=== PATIENT | female | born 1995 | race Caucasian/White ===

== ENCOUNTER 2017-01-07 11:18 | Emergency (ER) | payer BC ==
--- NOTE | 2017-01-07 12:02 | RAD ---
INDICATION: Left hand injury. TECHNIQUE: 4 views of the left hand were obtained. FINDINGS: There is a transverse nondisplaced fracture of the proximal metaphysis of the first metacarpal. There is also a transverse nondisplaced fracture of the proximal metaphysis of the first proximal phalanx. Joint spaces appear maintained. IMPRESSION: 1. TRANSVERSE NONDISPLACED FRACTURE OF THE FIRST METACARPAL. 2. TRANSVERSE NONDISPLACED FRACTURE OF THE FIRST PROXIMAL PHALANX.
[2017-01-07] MEDS ORDERED: Ibuprofen TAB* 600 MG PO ONE (13:26)
--- NOTE | 2017-01-07 13:30 | ED ---
Upper Extremity Pain - HPI Summary HPI Summary: 21 female presents to ED with complaints of left hand pain and injury that occurred early this morning around 1am. Patient states she was squatting down when she lost her balance, fell and used her left hand to try and catch herself. States she twisted and landed on her thumb wrong. Admits to swelling, bruising and pain with movement. Is right hand dominant. Denies wrist pain, arm pain or any other complaints at this time. No PMHx. Took ibuprofen early this morning around 3am and has not had anything since. Denies numbness/tingling. - History of Current Complaint Chief Complaint: EDExtremityUpper Stated Complaint: HAND INJURY Time Seen by Provider: 01/07/17 11:37 Hx Obtained From: Patient Onset/Duration: Started Hours Ago, Traumatic, Still Present, Worse Since Timing: Constant, Lasting Hours Severity Initially: Moderate Severity Currently: Moderate Pain Location: Hand - left, thumb Character: Sharp, Aching Aggravating Factor(s): Movement Alleviating Factor(s): Rest Associated Signs & Symptoms: Positive: Swelling, Bruising. Negative: Weakness, Numbness/Tingling Related History: Dominant Hand Right - Allergies/Home Medications Allergies/Adverse Reactions: Allergies Allergy/AdvReac Type Severity Reaction Status Date / Time No Known Allergies Allergy Verified 01/07/17 12:03 PMH/Surg Hx/FS Hx/Imm Hx Endocrine/Hematology History: Denies: Hx Diabetes Cardiovascular History: Denies: Hx Hypertension Respiratory History: Denies: Hx Asthma - Surgical History Surgery Procedure, Year, and Place: n/a - Immunization History Immunizations Up to Date: Yes Infectious Disease History: No Infectious Disease History: Denies: Traveled Outside the [place] in Last 30 Days - Family History Known Family History: Positive: None - Social History Alcohol Use: Occasionally Substance Use Type: Reports: None Smoking Status (MU): Never Smoked Tobacco Review of Systems Constitutional: Negative Cardiovascular: Negative Respiratory: Negative Positive: Arthralgia, Myalgia, Decreased ROM, Edema - left hand Positive: Bruising Neurological: Negative All Other Systems Reviewed And Are Negative: Yes Physical Exam Triage Information Reviewed: Yes Vital Signs On Initial Exam: Initial Vitals Temp Pulse Resp BP Pulse Ox 98.2 F 76 20 129/79 100 01/07/17 11:32 01/07/17 11:32 01/07/17 11:32 10/14/17 11:32 01/07/17 11:32 Vital Signs Reviewed: Yes Appearance: Positive: Well-Appearing, No Pain Distress, Well-Nourished Skin: Positive: Warm, Skin Color Reflects Adequate Perfusion, Dry, Other - ecchymosis noted over posterior and anterior 1stand 2nd metacarpal area, and proximal phalanx, with edema. Negative: Cold, Numb, Cyanosis @, Pale, Erythema @ Head/Face: Positive: Normal Head/Face Inspection Eyes: Positive: Conjunctiva Clear ENT: Positive: Hearing grossly normal, Pharynx normal Neck: Positive: Supple, Nontender Respiratory/Lung Sounds: Positive: Clear to Auscultation, Breath Sounds Present. Negative: Rales, Rhonchi, Wheezes Cardiovascular: Positive: Normal, RRR, Pulses are Symmetrical in both Upper and Lower Extremities - 2+ radial b/l. Negative: Murmur, Rub Musculoskeletal: Positive: Limited @ - left hand 1-2 digits due to pain, Pain @ - 1-2 digits and metacarpals of left hand, Edema Left - hand at 1-2 metacarpal, significant versus right hand with ecchymosis. Negative: Interruption @, Abnormal @ - no crepitus, step off or obvious deformity Neurological: Positive: Normal, Sensory/Motor Intact, Alert, Oriented to Person Place, Time, CN Intact II-III, Reflexes Intact, NV Bundle Intact Distally, Normal Gait - Jose David Coma Scale Coma Scale Total: 15 Procedures - Splinting Location: left hand/thumb Pre-Made Type: velcro - thumb spica Splint: thumb spica Pre-Proc Neuro Vasc Exam: normal Post-Proc Neuro Vasc Exam: normal Diagnostics - Vital Signs Vital Signs Temp Pulse Resp BP Pulse Ox 01/07/17 11:32 98.2 F 76 20 129/79 100 - Laboratory Lab Statement: Any lab studies that have been ordered have been reviewed, and results considered in the medical decision making process. - Radiology left hand Xray Interpretation: Positive (See Comments) - 1. TRANSVERSE NONDISPLACED FRACTURE OF THE FIRST METACARPAL. 2. TRANSVERSE NONDISPLACED FRACTURE OF THE FIRST PROXIMAL PHALANX. Radiology Interpretation Completed By: Radiologist Course/Dx - Course Course Of Treatment: xrays obtained and showed nondisplaced fractures of left proximal phalanx and first metacarpal. patient was given ibuprofen while in ED. thumb spica splint applied without complication. follow up with orthopedics. aware of worsening signs and symptoms. return if occur. RICE and NSAIDs. no other injuries or concerns at this time. - Diagnoses Provider Diagnoses: Fracture of first metacarpal bone, Fracture of thumb Discharge - Discharge Plan Condition: Stable Disposition: HOME Patient Education Materials: Finger Fracture (ED), Hand Fracture (ED) Referrals: [facility] [Primary Care Provider] - Solomon Rossi MD [Medical Doctor] - Additional Instructions: Continue taking ibuprofen or aleve for pain and inflammation. Rest, ice and elevate for swelling. Refrain from use of left hand. Do not remove splint. Follow up with orthopedics within 5-7 days for further evaluation and treatment. New or worsening symptoms please seek medical attention promptly.
[2017-01-07 14:06] VITALS: BP 119/64
== END 2017-01-07 14:05 | disposition home or self-care (01) ==
LOC: ED 11:18
DX: S62.502A Fracture of unspecified phalanx of left thumb, initial encounter for closed fracture (principal); M79.642 Pain in left hand; R60.9 Edema, unspecified; S62.202A Unspecified fracture of first metacarpal bone, left hand, initial encounter for closed fracture; W19.XXXA Unspecified fall, initial encounter; Y93.9 Activity, unspecified; Y92.9 Unspecified place or not applicable
CPT/HCPCS: 99282; A9270-GY